=== PATIENT | female | born 1965 ===

== ENCOUNTER 2023-07-21 10:11 | Outpatient (AMB) | payer OTHER, SELFPAY ==
--- NOTE | 2023-07-21 10:25 | MHC.OFFVIS ---
Intake Vital Signs 07/21/23 10:27 Height 5 ft 5 in BMI Reason not done Patient refused/unable BP 120/66 Blood Pressure Location Lt brachial Position Sitting Pulse 91 Intake Visit Reasons: GI Bleed Intake Note: Delia presents in the office as a GI bleed. CC: She states that she is having bleeding. No irregular bowel movements. Allergies No Known Allergies Allergy (Verified 07/21/23 10:28) HPI HPI Comments History of Present Illness Details 57y.o F with PMH of COPD with chronic respiratory failure requiring O2 supplementation, who is here for ? GI bleeding. Pt was seen with the help of online Kisw[place]ili workforce development vice president. Reports that she has had been noticing blood in her stool x 1 month. The stool itself is brown but notices blood on top of it as well as on wiping. Occurs every time she passes a BM. Reports constipation with hard pellet like stools requiring significant straining which is now better with linzess. Reports no lihgtheadedness or fatigue. CBC reviewed from PCP's office which is normal. No fam hx of CRC. No blood thinners. PFSH Surgical History (Updated 07/21/23 @ 10:28 by KRISTA Mcpherson) Hx of breast surgery Social History (Updated 07/21/23 @ 10:29 by KRISTA Mcpherson) Household Members: Spouse Alcohol intake: never Patient Tobacco Use Status: Never used Tobacco Use of substances other than those prescribed or required for medical reasons: No Review of Systems Const All systems reviewed & are unremarkable except as noted in HPI and below Physical Exam Vital Signs: Last Vital Signs Pulse 91 07/21/23 10:27 BP 120/66 07/21/23 10:27 Gen appear: Appears older than stated age HEENT: nonicteric, no cervical lymphadenopathy, NC in place Abd: soft, nondistended Neuro: A/Ox3, seated in wheelchair Psych: interacting appropriately Assessment & Plan Assessment & Plan (1) Bright red rectal bleeding: Code(s): K62.5 - Hemorrhage of anus and rectum (2) COPD (chronic obstructive pulmonary disease): Code(s): J44.9 - Chronic obstructive pulmonary disease, unspecified Plan Reviewed with the pt and her accompanying her that clinically consistent with rectal outlet bleeding from hemorrhoids. Normal CBC is reassuring. Other ddx include large friable polyp, SURS, mass etc. Plan: - Increase hydration, add fiber supplementation - Take miralax daily or every other day to avoid constipation - Sitz baths - Start anusol supp x 10-14 days total - Also recommend a colonoscopy, however this is to be booked after she has been seen by her water systems designer and has had jainne-procedure risk assessment given her underlying COPD. - Split PEG prep instructions were reviewed in anticipation, but pt was informed will need pulm clearance first, as above. Medications: New polyethylene glycol 3350 (Miralax) 17 grams PO DAILY 238 grams 0RF hydrocortisone acetate (Anusol-HC) 25 mg NC BEDTIME 12 ea 0RF peg 3350-electrolytes 236-22.74-6.74 -5.86 gram (Golytely) as per split prep instructions, until fecal effluent is clear 240 mL PO Q10M 4,000 mL 0RF colonoscopy Patient Instructions: The rectal bleeding appears to be from hemorrhoids based on the clinical assessment. We recommend increasing hydration, adding fiber supplementation, and taking miralax to avoid constipation. Steroid suppositories have been sent to your pharmacy to be used at bedtime x 10-14 days. We also recommend a colonoscopy however this is to be determined after you see your water systems designer for risk assessment for the procedure in regards to your COPD. Coding Level of Care Code New Pt Level 4 (79112) Diagnoses Bright red rectal bleeding K62.5 COPD (chronic obstructive pulmonary disease) J44.9
[2023-07-21 10:27] VITALS: BP 120/66; PULSE 91
== END 2023-07-21 11:17 | disposition home or self-care (01) ==
PROVIDERS: PCP Hospitalist; Visit Provider Internal Medicine
DX: K62.5 Hemorrhage of anus and rectum (principal); J44.9 Chronic obstructive pulmonary disease, unspecified
CPT/HCPCS: 99204

== ENCOUNTER → 2023-07-21 10:11 | Outpatient (BNVA) | payer OTHER, SELFPAY | PROVIDERS: PCP Hospitalist; Visit Provider Internal Medicine | DX: K62.5 Hemorrhage of anus and rectum (principal); J44.9 Chronic obstructive pulmonary disease, unspecified | CPT/HCPCS: 99202 ==

== ENCOUNTER 2023-11-16 09:47 | Day surgery (SDC) | payer OTHER, SELFPAY ==
[2023-11-12 10:34] VITALS: BMI 28.2
--- NOTE | 2023-11-12 15:32 | HO.ANESPROP2 ---
HPI - Anesthesia Eval Consult details Narrative: 58yo F for Colonoscopy Pulmo cleared. COPD. O2 dependant. Prednisone 10mg daily. Consider bipap post op Wheel chair dependant PMFSH Active Problems Active Problems: All Active Problems (Updated 11/12/23 @ 10:34 by Larissa Yu RN) COPD (chronic obstructive pulmonary disease) (Acute) Bright red rectal bleeding (Acute) Past Medical History Medical History (Updated 11/12/23 @ 10:34 by Larissa Yu RN) Elevated cholesterol Wheelchair dependent Anxiety Osteoporosis GERD (gastroesophageal reflux disease) HTN (hypertension) COPD (chronic obstructive pulmonary disease) Surgical History Surgical History (Updated 07/21/23 @ 10:28 by KRISTA Mcpherson) Hx of breast surgery Social History Social History (Updated 07/21/23 @ 10:29 by KRISTA Mcpherson) Household Members: Spouse Alcohol intake: never Patient Tobacco Use Status: Never used Tobacco Meds Allergies Allergy/AdvReac Type Severity Reaction Status Date / Time No Known Allergies Allergy Verified 07/21/23 10:28 Home Medications Medication Instructions Recorded Confirmed Last Taken Type Oxygen Home Use 07/21/23 Unknown History alendronate 70 mg tablet 70 mg PO QWEEK 07/21/23 11/12/23 Unknown History aspirin 81 mg tablet,delayed 81 mg PO DAILY 07/21/23 11/12/23 Unknown History release (Adult Aspirin Regimen) diltiazem HCl 60 mg 30 mg PO BID 07/21/23 11/12/23 Unknown History capsule,extended release 12 hr fluticasone 100 mcg-salmeterol 50 1 inh inhalation BID 07/21/23 11/12/23 Unknown History mcg/dose blistr powdr for inhalation (Advair Diskus) linaclotide 72 mcg capsule 72 mcg PO DAILY 07/21/23 Unknown History (Linzess) pantoprazole 40 mg tablet,delayed 40 mg PO DAILY 07/21/23 11/12/23 Unknown History release prednisone 10 mg tablet 10 mg PO DAILY 07/21/23 11/12/23 Unknown History roflumilast 500 mcg tablet 500 mcg PO DAILY 07/21/23 11/12/23 Unknown History (Daliresp) tiotropium bromide 1.25 2 puff inhalation DAILY 07/21/23 11/12/23 Unknown History mcg/actuation mist for inhalation (Spiriva Respimat) albuterol sulfate 90 mcg/actuation 2 puff inhalation Q6H PRN 11/12/23 11/12/23 Unknown History aerosol inhaler (Ventolin HFA) Shortness Of Breath Or Wheezing Exam Height,Weight and Vital Signs: Height 5 ft 4.61 in Weight 75.977 kg Pertinent Lab Results Pertinent Lab Results: CBC and BMP 05/2023 from outside facility WNL Assessment and Plan Assessment Anesthesia Assessment: Chart Reviewed
[2023-11-16 10:35] VITALS: BP 125/80; PULSE 74; RESP 20; TEMP 36.2; O2SAT 98; BMI 27.0
[2023-11-16] MEDS: Lactated Ringers 1,000 ML 100 ML IVCONT (11:07)
--- NOTE | 2023-11-16 11:30 | P.CONAN_ITS ---
[facility] Active Problems Active Problems: All Active Problems (Updated 11/12/23 @ 10:34 by Larissa Yu RN) COPD (chronic obstructive pulmonary disease) (Acute) Bright red rectal bleeding (Acute) Past Medical History Medical History Elevated cholesterol Wheelchair dependent Anxiety Osteoporosis GERD (gastroesophageal reflux disease) HTN (hypertension) COPD (chronic obstructive pulmonary disease) Functional capacity: independent ambulation Patient : No Family History Family history of problems with anesthesia: No Surgical History Surgical History Hx of breast surgery History of Problems with Anesthesia: No Social History Social History Household Members: Spouse Alcohol intake: never Patient Tobacco Use Status: Never used Tobacco Use of substances other than those prescribed or required for medical reasons: No Are you DNR?: No Advance Directives: No Advance Directives Information Provided: Yes Meds Allergies Allergy/AdvReac Type Severity Reaction Status Date / Time No Known Allergies Allergy Verified 07/21/23 10:28 Active Medications: Current Medications Lactated Ringer's (Lr) 1,000 mls @ 100 mls/hr IVCONT .Q10H KRYS Last Admin: 11/16/23 11:07 Dose: 100 mls/hr Home Medications Medication Instructions Recorded Confirmed Last Taken Type Oxygen Home Use 07/21/23 Unknown History alendronate 70 mg tablet 70 mg PO QWEEK 07/21/23 11/12/23 Unknown History aspirin 81 mg tablet,delayed 81 mg PO DAILY 07/21/23 11/12/23 Unknown History release (Adult Aspirin Regimen) diltiazem HCl 60 mg 30 mg PO BID 07/21/23 11/12/23 11/16/23 History capsule,extended release 12 hr fluticasone 100 mcg-salmeterol 50 1 inh inhalation BID 07/21/23 11/12/23 11/16/23 History mcg/dose blistr powdr for inhalation (Advair Diskus) linaclotide 72 mcg capsule 72 mcg PO DAILY 07/21/23 Unknown History (Linzess) pantoprazole 40 mg tablet,delayed 40 mg PO DAILY 07/21/23 11/12/23 11/16/23 History release prednisone 10 mg tablet 10 mg PO DAILY 07/21/23 11/12/23 Unknown History roflumilast 500 mcg tablet 500 mcg PO DAILY 07/21/23 11/12/23 Unknown History (Daliresp) tiotropium bromide 1.25 2 puff inhalation DAILY 07/21/23 11/12/23 Unknown History mcg/actuation mist for inhalation (Spiriva Respimat) albuterol sulfate 90 mcg/actuation 2 puff inhalation Q6H PRN 11/12/23 11/12/23 Unknown History aerosol inhaler (Ventolin HFA) Shortness Of Breath Or Wheezing Exam Height,Weight and Vital Signs: Height 5 ft 5 in Weight 73.482 kg Last Vital Signs Temp 97.2 F 11/16/23 10:35 Pulse 74 11/16/23 10:35 Resp 20 11/16/23 10:35 BP 125/80 11/16/23 10:35 Pulse Ox 98 11/16/23 10:35 O2 Del Method Nasal Cannula 11/16/23 10:35 O2 Flow Rate 2 11/16/23 10:35 Airway Mallampati Class: II TM Dist: >3cm Neck ROM: Full Heart: RRR Lungs: CTA Assessment and Plan Assessment Anesthesia Assessment: Anesthesia Plan Discussed Final Anesthetic Review Family History of Problems with Anesthesia: No History of Problems with Anesthesia: No NPO: Yes ASA Class: III Final Preanesthetic Review: Meds/Allgs Chart Reviewed, Consent Obtained/Reviewed and Anes Risks/Benef Reviewed Patient Risk: Intermediate Procedure Risk: Low Anesthetic Plan Anesthetic Plan: MAC: Disposition: Standard PACU
--- NOTE | 2023-11-16 11:56 | P.OP_ITS ---
Operative Note Operative Note Date of Service: 11/16/23 Narrative: Procedure: Colonoscopy Indication: LGIB Endoscopist: Tenisha Pierce MD Anesthesia Provider: Dr Christa Byers Anesthesia type: MAC Instrument: Olympus [id number]-H190L Consent: Indication, risks vs benefits, and alternatives were discussed with the patient who gave written informed consent to proceed. An english language learner teacher was utilized to assist with the consent. EKG, pulse, pulse oximetry and blood pressure were monitored throughout the procedure. Please see anesthesia flowsheet. Procedure: The patient was brought to the procedure room and placed in the left lateral decubitus position. IV medications were administered by the anesthesia provider in attendance. A digital rectal exam was performed which was normal. A distal attachment cap was affixed to the tip of the colonoscope which was then inserted through the anus and advanced through the colon to the cecum at 80cm,and terminal ileum. Appendiceal orifice and ileocecal valve were identified. Mucosa was carefully examined under high definition white light as the instrument was slowly withdrawn in a retrograde panoramic fashion. Retroflexion was performed in ascending colon and rectum. The procedure was not difficult. There were no immediate obvious complications. The quality of the prep was BBPS: 2+3+2 = adequate Withdrawal time 45 minutes. Limitations: No limitations. Findings: Mucosa: Normal to cecum and terminal ileum. Protruding lesions: * 2 sessile polyps of size 2-4 mm in ascending colon. Cold snare polypectomy was performed. The polyps were completely removed and retrieved. * 1 pedunculated polyp of size 2cm in transverse colon. Epinephrine was injected in the base of the polyp. Hot snare polypectomy was performed. The polyp was completely removed and retrieved. An endoclip was applied to the base of the stalk. * 1 pedunculated polyp of size 5 cm in sigmoid colon at 35 cm. Epinephrine was injected in the base of the polyp and the polyp itself. Hot snare polypectomy was performed. The polyp was completely removed and retrieved. An endoclip was applied to the base of the stalk. * 1 pedunculated polyp of size 2 cm in sigmoid colon at 20 cm. Epinephrine was injected in the base of the polyp and the polyp itself. Hot snare polypectomy was performed. Polyp was removed piecemeal and retrieved. An endoclip was applied to the base of the stalk. * Medium internal hemorrhoids without stigmata of recent bleeding. Impression: 1. Normal colon and terminal ileum mucosa 2. Total of 5 polyps removed. 3. Internal hemorrhoids Recommendations: - Follow path results. - Repeat colonoscopy in 6 months due to piecemeal resection of sigmoid polyp.
--- NOTE | 2023-11-16 11:56 | MHC.SHP ---
Pre-Procedural Eval Section A - 24 Hr Update-Section A only Date of Service: 11/16/23 Section B - Complete if H&P > 30 days Chief Complaint: Hemorrhage of anus and rectum Details of Present Illness: chronic respiratory failure requiring O2 supplementation Present Medications: see Short Stay Collaborative assessment Allergies: Allergies Allergy/AdvReac Type Severity Reaction Status Date / Time No Known Allergies Allergy Verified 07/21/23 10:28 Review of Systems Review of Systems Comment: 10 point ROS negative Exam Surgical H&P Exam: Normal: HEENT, Normal: Heart, Normal: Lungs, Normal: Extremities, Normal: Abdomen, Normal: Skin and Normal: Neurological Plan Diagnosis/Plan: Unchanged I have reviewed the history and physical and performed a pertinent physical examination on my patient. No changes have occurred unless specified. Time Spent With Patient Time: Total time managing care of this patient today ____ minutes.
[2023-11-16 13:31] VITALS: BP 149/85; PULSE 73; RESP 18; TEMP 36.1; O2SAT 99
--- NOTE | 2023-11-16 13:35 | HO.POSTANES ---
Post Anesthesia Evaluation Post Anesthesia Evaluation Date of Service: 11/16/23 Vital Signs: Vital Signs Temp Pulse Resp BP Pulse Ox O2 Del Method O2 Flow Rate 11/16/23 10:35 97.2 F 74 20 125/80 98 Nasal Cannula 2 Anesthesia: Monitored Mental Status: Awake Pain Control: Satisfactory Hydration: Adequate Anesthesia-Related Issues: No Anes. Related Issues
== END 2023-11-16 14:57 | disposition home or self-care (01) ==
PROVIDERS: PCP Hospitalist; Visit Provider Internal Medicine
PROC: 0DJD8ZZ Inspection of Lower Intestinal Tract, Via Natural or Artificial Opening Endoscopic (ICD-10-PCS; CPT 45378; principal; 2023-11-16 15:10)
DX: D37.4 Neoplasm of uncertain behavior of colon (principal); D12.2 Benign neoplasm of ascending colon; D12.5 Benign neoplasm of sigmoid colon; K64.8 Other hemorrhoids; J44.9 Chronic obstructive pulmonary disease, unspecified; I10 Essential (primary) hypertension; E78.00 Pure hypercholesterolemia, unspecified; K21.9 Gastro-esophageal reflux disease without esophagitis; Z79.82 Long term (current) use of aspirin; Z79.899 Other long term (current) drug therapy
CPT/HCPCS: 45385; 45381; 88305; J0171; J2704

== ENCOUNTER → 2023-11-16 09:47 | Outpatient (BNV) | payer OTHER, SELFPAY | PROVIDERS: PCP Hospitalist; Visit Provider Internal Medicine | DX: K92.2 Gastrointestinal hemorrhage, unspecified (principal); D12.2 Benign neoplasm of ascending colon; D12.3 Benign neoplasm of transverse colon; K64.8 Other hemorrhoids | CPT/HCPCS: 45381; 45385 ==

== ENCOUNTER 2023-12-01 15:10 | Outpatient (AMB) | payer OTHER, SELFPAY ==
--- NOTE | 2023-12-01 15:17 | MHC.OFFVIS ---
Intake Vital Signs 12/01/23 15:25 Height 5 ft 5 in Weight 162 lb BMI 27.0 BP 131/75 Blood Pressure Location Lt brachial Position Sitting Pulse 85 Intake Visit Reasons: s/P [place]; Dr Pierce Intake Note: Delia presents in the office as a follow up colonoscopy. CC: Towel Inspector Required: Yes Allergies No Known Allergies Allergy (Verified 12/01/23 15:22) HPI HPI Comments History of Present Illness Details 57y.o F with PMH of COPD with chronic respiratory failure requiring O2 supplementation, who is here for ? GI bleeding. Pt was seen with the help of online Lao factory maintenance technician. Reports that she has had been noticing blood in her stool x 1 month. The stool itself is brown but notices blood on top of it as well as on wiping. Occurs every time she passes a BM. Reports constipation with hard pellet like stools requiring significant straining which is now better with linzess. Reports no lihgtheadedness or fatigue. CBC reviewed from PCP's office which is normal. No fam hx of CRC. No blood thinners. 11/16/23: Mucosa: Normal to cecum and terminal ileum. Protruding lesions: 2 sessile polyps of size 2-4 mm in ascending colon. Cold snare polypectomy was performed. The polyps were completely removed and retrieved. 1 pedunculated polyp of size 2cm in transverse colon. Epinephrine was injected in the base of the polyp. Hot snare polypectomy was performed. The polyp was completely removed and retrieved. An endoclip was applied to the base of the stalk. 1 pedunculated polyp of size 5 cm in sigmoid colon at 35 cm. Epinephrine was injected in the base of the polyp and the polyp itself. Hot snare polypectomy was performed. The polyp was completely removed and retrieved. An endoclip was applied to the base of the stalk. 1 pedunculated polyp of size 2 cm in sigmoid colon at 20 cm. Epinephrine was injected in the base of the polyp and the polyp itself. Hot snare polypectomy was performed. Polyp was removed piecemeal and retrieved. An endoclip was applied to the base of the stalk. Medium internal hemorrhoids without stigmata of recent bleeding. Path: A. Colon, ascending, polypectomy: Tubular adenoma; negative for high-grade dysplasia. B. Colon, polyp at 65 cm, polypectomy: Tubulovillous adenoma; negative for high-grade dysplasia. C. Colon, polyp at 35 cm, polypectomy: Tubular adenoma; negative for high-grade dysplasia. D. Colon, polyp at 20 cm, polypectomy: Tubular adenoma, multiple fragments; negative for high-grade dysplasia 12/01/23: No complaints today. Reports resolution of rectal bleeding so suspect may have been from the larger sigmoid polyps. [facility] Medical History (Updated 12/01/23 @ 15:36 by Tenisha Pierce MD) Elevated cholesterol Wheelchair dependent Anxiety Osteoporosis GERD (gastroesophageal reflux disease) HTN (hypertension) COPD (chronic obstructive pulmonary disease) Surgical History (Updated 12/01/23 @ 15:22 by KRISTA Mcpherson) History of esophagogastroduodenoscopy (EGD) Hx of colonoscopy Hx of breast surgery Social History Household Members: Spouse Alcohol intake: never Patient Tobacco Use Status: Never used Tobacco Physical Exam Vital Signs: Last Vital Signs Pulse 85 12/01/23 15:25 BP 131/75 12/01/23 15:25 BMI result Body Mass Index 27.0 Assessment & Plan Assessment & Plan (1) Personal history of colonic polyps: Code(s): Z86.010 - Personal history of colonic polyps (2) Bright red rectal bleeding: Code(s): K62.5 - Hemorrhage of anus and rectum Plan Results of colo reviewed with the pt and her with the help of an Lao factory maintenance technician. Pt advised to have her siblings get screened early at 40 due to her hx of advanced polyps. Pt does not have children. She is already scheduled for surveillance colo in 6 months due to piecemeal resection of a large adenoma. Follow up after next scope. Medications: New simethicone (Gas Relief (simethicone)) 125 mg PO TID-QID PRN 90 caps 0RF abdominal distention Refilled peg 3350-electrolytes 236-22.74-6.74 -5.86 gram (Golytely) as per split prep instructions, until fecal effluent is clear 240 mL PO Q10M 4,000 mL 0RF colonoscopy Coding Level of Care Code Est Pt Level 4 (60446) Diagnoses Personal history of colonic polyps Z86.010 Bright red rectal bleeding K62.5
[2023-12-01 15:25] VITALS: BP 131/75; PULSE 85; BMI 27.0
== END 2023-12-01 15:52 | disposition home or self-care (01) ==
PROVIDERS: PCP Hospitalist; Visit Provider Internal Medicine
DX: Z86.010 Personal history of colon polyps (principal); K62.5 Hemorrhage of anus and rectum
CPT/HCPCS: 99214

== ENCOUNTER → 2023-12-01 15:10 | Outpatient (BNVA) | payer OTHER, SELFPAY | PROVIDERS: PCP Hospitalist; Visit Provider Internal Medicine | DX: Z86.010 Personal history of colon polyps (principal); K62.5 Hemorrhage of anus and rectum | CPT/HCPCS: 99212 ==

== ENCOUNTER 2024-05-18 06:38 | Day surgery (SDC) | payer OTHER, SELFPAY ==
[2024-05-18 06:51] VITALS: BMI 27.0
[2024-05-18] MEDS: Lactated Ringers 1,000 ML 80 ML IVCONT (07:16)
[2024-05-18] MEDS: Albuterol/Iprat 2.5/0.5MG 3 ML AMPUL.NEB INHALE (07:24)
[2024-05-18 07:27] VITALS: BP 117/70; PULSE 71; RESP 18; TEMP 36.6; O2SAT 95
--- NOTE | 2024-05-18 07:51 | P.CONAN_ITS ---
HPI - Anesthesia Eval Consult details Narrative: 58 yo F presenting for colonoscopy. COPD on 2LNC home O2 PMFSH Active Problems Active Problems: All Active Problems Personal history of colonic polyps (Acute) COPD (chronic obstructive pulmonary disease) (Acute) Bright red rectal bleeding (Acute) Past Medical History Medical History Elevated cholesterol Wheelchair dependent Anxiety Osteoporosis GERD (gastroesophageal reflux disease) HTN (hypertension) COPD (chronic obstructive pulmonary disease) Family History Family history of problems with anesthesia: No Surgical History Surgical History History of esophagogastroduodenoscopy (EGD) Hx of colonoscopy Hx of breast surgery History of Problems with Anesthesia: No Social History Social History Household Members: Spouse Alcohol intake: never Patient Tobacco Use Status: Never used Tobacco Use of substances other than those prescribed or required for medical reasons: No Have you been hit, kicked, punched, or otherwise hurt by someone within the past year? If so, by whom?: No Are you DNR?: No Advance Directives: No Advance Directives Information Provided: Yes Recently lost weight without trying: No Nutrition Risks: No Nutritional Risk Meds Allergies Allergy/AdvReac Type Severity Reaction Status Date / Time No Known Allergies Allergy Verified 12/01/23 15:22 Active Medications: Current Medications Lactated Ringer's (Lr) 1,000 mls @ 80 mls/hr IVCONT .[id number] KRYS Last Admin: 05/18/24 07:16 Dose: 80 mls/hr Home Medications ?Medication ?Instructions ?Recorded ?Confirmed ?Last Taken ?Type Oxygen Home Use 07/21/23 Unknown History alendronate 70 mg tablet 70 mg PO QWEEK 07/21/23 05/18/24 05/17/24 History aspirin 81 mg tablet,delayed 81 mg PO DAILY 07/21/23 05/18/24 05/11/24 History release (Adult Aspirin Regimen) linaclotide 72 mcg capsule 72 mcg PO DAILY 07/21/23 05/18/24 05/17/24 History (Linzess) pantoprazole 40 mg tablet,delayed 40 mg PO DAILY 07/21/23 05/18/24 05/17/24 History release prednisone 10 mg tablet 10 mg PO DAILY 07/21/23 05/18/24 05/17/24 History roflumilast 500 mcg tablet 500 mcg PO DAILY 07/21/23 05/18/24 05/17/24 History (Daliresp) tiotropium bromide 1.25 2 puff inhalation DAILY 07/21/23 05/18/24 05/17/24 History mcg/actuation mist for inhalation (Spiriva Respimat) albuterol sulfate 90 mcg/actuation 2 puff inhalation Q6H PRN 11/12/23 11/12/23 Unknown History aerosol inhaler (Ventolin HFA) Shortness Of Breath Or Wheezing azithromycin 250 mg tablet 250 mg PO DAILY 12/01/23 05/18/24 Unknown History calcium carbonate 500 mg-vitamin 1 tab PO DAILY 12/01/23 05/18/24 05/17/24 History D3 10 mcg (400 unit) tablet (Calcium 500 With D) diltiazem HCl 30 mg tablet 30 mg PO BID 12/01/23 05/18/24 05/17/24 History fluticasone 500 mcg-salmeterol 50 1 ea inhalation BID 12/01/23 Unknown History mcg/dose blistr powdr for inhalation (Advair Diskus) ipratropium 0.5 mg-albuterol 3 mg ml inhalation 12/01/23 Unknown History (2.5 mg base)/3 mL nebulization soln tiotropium bromide 18 mcg capsule 1 cap inhalation DAILY 12/01/23 05/18/24 05/17/24 History with inhalation device (Spiriva with HandiHaler) Exam Exam Date and Time: 05/18/24 0755 Height,Weight and Vital Signs: Height 5 ft 5 in Weight 73.482 kg Last Vital Signs Temp 97.8 F 05/18/24 07:27 Pulse 71 05/18/24 07:27 Resp 18 05/18/24 07:27 BP 117/70 05/18/24 07:27 Pulse Ox 95 05/18/24 07:27 O2 Del Method Nasal Cannula 05/18/24 07:27 O2 Flow Rate 3 05/18/24 07:27 Airway Mallampati Class: II TM Dist: >3cm Denture: Upper and Lower Heart: S1S2 Lungs: Diminished bilaterally Assessment and Plan Assessment Anesthesia Assessment: Anesthesia Plan Discussed and Chart Reviewed Final Anesthetic Review Family History of Problems with Anesthesia: No History of Problems with Anesthesia: No NPO: Yes ASA Class: III Final Preanesthetic Review: No Changes in Pt Med Stat, Meds/Allgs Chart Tung olson, Consent Obtained/Reviewed and Anes Risks/Benef Reviewed Patient Risk: Intermediate Procedure Risk: Low Anesthetic Plan Anesthetic Plan: MAC: and Agree w/ Assess. and Plan Disposition: Standard PACU
--- NOTE | 2024-05-18 08:04 | MHC.SHP ---
Pre-Procedural Eval Section A - 24 Hr Update-Section A only Date of Service: 05/18/24 Section B - Complete if H&P > 30 days Chief Complaint: Hx of polyps Details of Present Illness: chronic respiratory failure requiring O2 supplementation Present Medications: see Short Stay Collaborative assessment Allergies: Allergies Allergy/AdvReac Type Severity Reaction Status Date / Time No Known Allergies Allergy Verified 12/01/23 15:22 Review of Systems Review of Systems Comment: 10 point ROS negative Exam Surgical H&P Exam: Normal: HEENT, Normal: Heart, Normal: Lungs, Normal: Extremities, Normal: Abdomen, Normal: Skin and Normal: Neurological Plan Diagnosis/Plan: Unchanged I have reviewed the history and physical and performed a pertinent physical examination on my patient. No changes have occurred unless specified. Time Spent With Patient Time: Total time managing care of this patient today ____ minutes.
--- NOTE | 2024-05-18 09:15 | P.OPN-COLO_ITS ---
Colonoscopy Operative Note Operative Note Date of Service: 05/18/24 Narrative: Procedure: Colonoscopy Indication: Personal history of polyps Endoscopist: Tenisha Pierce MD Anesthesia Provider: Karen Brice MD Anesthesia type: MAC Instrument: Olympus [id number] and [id number] Consent: Indication, risks vs benefits, and alternatives were discussed with the patient who gave written informed consent to proceed. EKG, pulse, pulse oximetry and blood pressure were monitored throughout the procedure. Please see anesthesia flowsheet. Procedure: The patient was brought to the procedure room and placed in the left lateral decubitus position. IV medications were administered by the anesthesia provider in attendance. A digital rectal exam was performed which was normal. A distal attachment cap was affixed to the tip of the colonoscope which was then inserted through the anus and advanced through the colon to the cecum at 80 cm. Appendiceal orifice and ileocecal valve were identified. Mucosa was carefully examined under high definition white light as the instrument was slowly withdrawn in a retrograde panoramic fashion. Retroflexion was performed in rectum. The procedure was somewhat difficult and required a change of scope to adult scope get around the hepatic flexure. There were no immediate obvious complications. The quality of the prep was BBPS: 3+2+2 = adequate Withdrawal time 9 minutes. Limitations: No limitations. Findings: Mucosa: A small raised area of erythematous mucosa measuring 5 mm at 25 cm from anal verge. Cold forceps biopsies were taken. Remaining mucosa normal to cecum. Protruding lesions: * Large internal hemorrhoids without stigmata of recent bleeding. Impression: 1. Abnormal mucosa at 25 cm ? residual polyp (biopsy) 2. Internal hemorrhoids Recommendations: - Repeat colonoscopy in 3 years due to >3 adenomas on colonoscopy 11/2023.
[2024-05-18 09:20] VITALS: BP 131/79; PULSE 82; RESP 20; TEMP 36.3; O2SAT 99
[2024-05-18 09:35] VITALS: BP 115/82; PULSE 77; RESP 20; O2SAT 97
[2024-05-18 09:51] VITALS: BP 124/85; PULSE 73; RESP 20; TEMP 36.2; O2SAT 97
== END 2024-05-18 10:18 | disposition home or self-care (01) ==
PROVIDERS: PCP Hospitalist; Visit Provider Internal Medicine
PROC: 0DJD8ZZ Inspection of Lower Intestinal Tract, Via Natural or Artificial Opening Endoscopic (ICD-10-PCS; CPT 45378; principal; 2024-05-18 08:20)
DX: Z12.11 Encounter for screening for malignant neoplasm of colon (principal); Z86.010 Personal history of colon polyps; K63.89 Other specified diseases of intestine; K64.8 Other hemorrhoids; K59.00 Constipation, unspecified; K21.9 Gastro-esophageal reflux disease without esophagitis; K62.5 Hemorrhage of anus and rectum; J44.9 Chronic obstructive pulmonary disease, unspecified; J96.10 Chronic respiratory failure, unspecified whether with hypoxia or hypercapnia; Z99.81 Dependence on supplemental oxygen; I10 Essential (primary) hypertension; E78.00 Pure hypercholesterolemia, unspecified; M81.0 Age-related osteoporosis without current pathological fracture; F41.9 Anxiety disorder, unspecified; Z99.3 Dependence on wheelchair; Z79.52 Long term (current) use of systemic steroids; Z79.82 Long term (current) use of aspirin; Z79.899 Other long term (current) drug therapy
CPT/HCPCS: 45380; 88305; J2704

== ENCOUNTER → 2024-05-18 06:38 | Outpatient (BNV) | payer OTHER, SELFPAY | PROVIDERS: PCP Hospitalist; Visit Provider Internal Medicine | DX: K64.8 Other hemorrhoids (principal); D12.9 Benign neoplasm of anus and anal canal | CPT/HCPCS: 45380 ==